=== PATIENT | female | born 1935 | race Caucasian/White ===

== ENCOUNTER 2016-12-27 10:08 | Emergency (ER) | payer MEDICARE, BC ==
[2016-12-27 11:05] VITALS: BP 148/72
--- NOTE | 2016-12-27 11:24 | RAD ---
INDICATION: Fever, left lower lobe rales. COMPARISON: There are no prior studies available for comparison. TECHNIQUE: Dual-energy PA and lateral views of the chest were obtained. FINDINGS: The heart is within normal limits in size. Mediastinal and hilar contours appear within normal limits. There is a small infiltrate in the left lower lobe. The lungs are otherwise clear. No pleural effusion is seen. IMPRESSION: SMALL LEFT LOWER LOBE INFILTRATE.
[2016-12-27] MEDS ORDERED: Levofloxacin TAB* 500 MG PO ONE (11:38)
--- NOTE | 2016-12-27 11:46 | UC ---
Respiratory Complaint HPI - HPI Summary HPI Summary: 81 yo female with a 3 day hx of fever/chills/myalgias no cough no uti symptoms no n/v - History of Current Complaint Chief Complaint: UCGeneralIllness Stated Complaint: FEVER Time Seen by Provider: 12/27/16 10:41 Hx Obtained From: Patient Onset/Duration: Gradual Onset, Lasting Days Timing: Constant Severity Initially: Mild Severity Currently: Mild Pain Intensity: 2 Pain Scale Used: 0-10 Numeric Aggravating Factors: Nothing Alleviating Factors: OTC Meds Associated Signs And Symptoms: Positive: Fever, Chills - Allergies/Home Medications Allergies/Adverse Reactions: Allergies Allergy/AdvReac Type Severity Reaction Status Date / Time Peanut-containing Drug Allergy GI AND Verified 12/27/16 10:34 Products ITCHING Penicillins Allergy HIVES/ITCHING/TONGUE Verified 12/27/16 10:34 SWELLS Simvastatin [From Zocor] Allergy Unknown Verified 12/27/16 10:34 Reaction Details Home Medications: Home Medications Acetaminophen [Acetaminophen Extra Stren] 500 mg PO PRN 12/27/16 [History] Gabapentin CAP(*) [Neurontin 100 mg CAP(*)] 100 mg PO BID 12/27/16 [History Confirmed 12/27/16] PMH/Surg Hx/FS Hx/Imm Hx Previously Healthy: Yes Endocrine History: Dyslipidemia Psychological History: Anxiety, Depression - Surgical History Surgical History: None - Social History Alcohol Use: None Substance Use Type: None Smoking Status (MU): Former Smoker When Did the Patient Quit Smoking/Using Tobacco: college Review of Systems Constitutional: Fever, Chills Skin: Negative Eyes: Negative ENT: Negative Respiratory: Negative Cardiovascular: Negative Gastrointestinal: Negative Genitourinary: Negative Motor: Negative Neurovascular: Negative Musculoskeletal: Myalgia Neurological: Headache Psychological: Negative All Other Systems Reviewed And Are Negative: Yes Physical Exam Triage Information Reviewed: Yes Appearance: Well-Appearing, No Pain Distress, Well-Nourished Vital Signs: Initial Vital Signs Temp 98.3 F 12/27/16 10:34 Pulse 111 12/27/16 10:34 Resp 18 12/27/16 10:34 BP 148/72 12/27/16 10:34 Pulse Ox 98 12/27/16 10:34 Vital Signs Reviewed: Yes Eyes: Positive: Conjunctiva Clear ENT: Positive: Hearing grossly normal. Negative: Nasal congestion, Nasal drainage, Tonsillar swelling, Tonsillar exudate, Muffled/hoarse voice Neck: Positive: Supple, Nontender, No Lymphadenopathy Respiratory: Positive: No respiratory distress, No accessory muscle use, Crackles - left base. Negative: Lungs clear Cardiovascular: Positive: RRR, No Murmur, Tachycardia Abdomen Description: Positive: Nontender, No Organomegaly, Soft. Negative: CVA Tenderness (R), CVA Tenderness (L) Bowel Sounds: Positive: Present Musculoskeletal: Positive: ROM Intact, No Edema Neurological: Positive: Alert Psychological Exam: Normal Skin Exam: Normal UC Diagnostic Evaluation - Laboratory O2 Sat by Pulse Oximetry: 98 - normal/not hypoxic - Radiology Xray Interpretation: Positive (See Comments) - small LLL infiltrate Radiology Interpretation Completed By: Radiologist Respiratory Course/Dx - Differential Dx/Diagnosis Provider Diagnoses: pneumonia Discharge - Discharge Plan Condition: Stable Disposition: HOME Prescriptions: Levofloxacin TAB* [Levaquin TAB*] 500 mg PO DAILY #6 tab Patient Education Materials: Pneumonia (ED) Referrals: Giovanna Carr MD [Primary Care Provider] - 2 Days Additional Instructions: to ER for new or worsening symptoms
== END 2016-12-27 11:52 | disposition home or self-care (01) ==
LOC: UCCORT 10:08
DX: J18.9 Pneumonia, unspecified organism (principal); E78.5 Hyperlipidemia, unspecified; F41.9 Anxiety disorder, unspecified; F32.9 Major depressive disorder, single episode, unspecified; Z88.0 Allergy status to penicillin; Z87.891 Personal history of nicotine dependence
CPT/HCPCS: 71020; 99212; G0463